=== PATIENT | male | born 1995 | race Caucasian/White ===

== ENCOUNTER 2017-01-10 18:22 | Inpatient (IN) | payer SELFPAY ==
[~2017-01-10] VITALS: Ht 180.3 cm; Wt 69.6 kg
[~2017-01-10 18:22] MED LIST: SULF1TAB47 PO; Z.0.NO CURRENT MEDS
[2017-01-10 18:34] VITALS: BP 129/79; PULSE 114; RESP 20; TEMP 100.7; O2SAT 97
[2017-01-10] MEDS ORDERED: SODIUM CHLOR 0.9% 1000 ML INJ 1,000 ML IV ONE ×2 (19:15→21:00)
[2017-01-10] MEDS ORDERED: KETOROLAC TROMETHAMINE 30 MG/ML (IVP) VIAL IV PUSH ONE (19:15)
[2017-01-10 19:55] LABS: AUTOMATED NEUTROPHIL # 9.6 TH/MM3 (1.8-7.7); BASOPHIL # 0.6 TH/MM3 (0-0.2); BASOPHIL % 4.8 % (0.0-2.0); EOSINOPHIL # 0.1 TH/MM3 (0-0.4); EOSINOPHIL % 0.4 % (0.0-4.0); HEMATOCRIT 47.2 % (39.0-51.0); HEMO FLAGS DIFF FINAL; LYMPH % 10.1 % (9.0-44.0); LYMPHOCYTE # 1.3 TH/MM3 (1.0-4.8); MEAN CELL VOLUME 89.5 FL (80.0-100.0); MEAN CORPUSCULAR HEMOGLOBIN 29.2 PG (27.0-34.0); MEAN CORPUSCULAR HGB CONC 32.6 % (32.0-36.0); MONO % 12.1 % (0.0-8.0); NEUT % 72.6 % (16.0-70.0); PLATELET COUNT 217 TH/MM3 (150-450); RED BLOOD COUNT 5.27 MIL/MM3 (4.50-5.90); RED CELL DISTRIBUTION WIDTH 13.5 % (11.6-17.2); WHITE BLOOD COUNT 13.2 TH/MM3 (4.0-11.0)
--- NOTE | 2017-01-10 20:00 | PD ---
HPI Chief Complaint: Musculoskeletal Complaint Time Seen by Provider: 19:15 Travel History International Travel<30 days: No Contact w/Intl Traveler<30days: No Traveled to known affect area: No History of Present Illness HPI 21-year-old male presents to the emergency department by private transportation the care of family for evaluation of distal left knee and pretibial pain redness swelling and ascending erythema associated with fever without chills. Patient states 2 weeks ago patient sustained an abrasion to the left lower leg has a proximal anterior arboleda. Patient states site has been doing well has had issues has had an abrasion site healing there and then last evening contuse this site again and then overnight started noticing some increased redness and swelling at the location of the abrasion. Patient denies any knee joint pain but does note tenseness at the site and inflammation and swelling when he tries to bend the knee off of the knee itself does not have pain. Patient is also noted some ascending erythema to the medial aspect and proximal to the knee. Patient denies any left groin pain. Patient's had no nausea or vomiting or abdominal pain. Patient has noted fever of 10 1F at home. Patient has had no chills. Patient is not diabetic. Patient does not know his tetanus status. Patient estimates pain as 8/10 in intensity. [facility] Past Medical History Narrative Medical Asthma, depression, Asthma: Yes Depression: Yes Developmental Delay: No Diminished Hearing: No Immunizations Current: Yes Past Surgical History Tonsillectomy: Yes Social History Alcohol Use: Yes (DAILY) Tobacco Use: Yes Substance Use: No Allergies-Medications (Allergen,Severity, Reaction): Coded Allergies: penicillin G (Unverified Allergy, Severe, rash, 01/10/17) Reported Meds & Prescriptions Reported Meds & Active Scripts Active No Active Prescriptions or Reported Medications Review of Systems Except as stated in HPI: all other systems reviewed are Neg General / Constitutional: Positive: Fever, No: Chills HENT: No: Congestion Cardiovascular: No: Chest Pain or Discomfort Respiratory: No: Shortness of Breath Gastrointestinal: No: Nausea, Vomiting, Abdominal Pain Genitourinary: No: Decreased Urinary Output Musculoskeletal: Positive: Limited ROM (left knee), Pain (anterior proximal lower leg ), No: Myalgias, Arthralgias Skin: Positive Rash (anterior proximal lower leg) Neurologic: No: Weakness, Dizziness Psychiatric: No: Anxiety Endocrine: No: Heat Intolerance Hematologic/Lymphatic: No: Easy Bruising Physical Exam Narrative GENERAL: Well-developed well-nourished male in no acute distress no respiratory distress; T: 100.7 F, HR: 114, RR: 20, BP: 129/79 ; O2 sat: 97% SKIN: Warm and dry. HEAD: Normocephalic. EYES: No scleral icterus. No injection or drainage. NECK: Supple, trachea midline. No JVD or lymphadenopathy. CARDIOVASCULAR: Regular rate and rhythm without murmurs, gallops, or rubs. RESPIRATORY: Breath sounds equal bilaterally. No accessory muscle use. GASTROINTESTINAL: Abdomen soft, non-tender, nondistended. MUSCULOSKELETAL: No cyanosis, or edema. Attention left lower extremity just distal to the left knee is an area of erythema induration with central soft small hematoma that readily expresses seropurulent drainage. Patient demonstrates intact range of motion of the knee without joint pain on range of motion although does complain of some noted increased pressure or tenseness at end range of motion overlying the area of soft tissue swelling just anterior to the tibial tuberosity with associated warmth , erythema but without induration. No ballotable joint effusion. Patient has non-antalgic movement of the knee at the joint. Distally extremity is neurovascular tendon intact. Proximally there is ascending erythema medial thigh without groin lymphadenopathy or tenderness to palpation. BACK: Nontender without obvious deformity. No CVA tenderness. Data Data Last Documented VS Vital Signs Date Time Temp Pulse Resp B/P (MAP) Pulse Ox O2 Delivery O2 Flow Rate FiO2 01/10/17 20:34 99.0 102 16 01/10/17 20:08 98 Room Air 01/10/17 18:34 129/79 (96) Orders Orders Basic Metabolic Panel (Bmp) (01/10/17 19:15) Complete Blood Count With Diff (01/10/17 19:15) Blood Culture (01/10/17 19:15) Wound Culture And Gram Stain (01/10/17 19:15) Iv Access Insert/Monitor (01/10/17 19:15) Lactic Acid Sepsis Protocol (01/10/17 19:15) Sodium Chlor 0.9% 1000 Ml Inj (Ns 1000 M (01/10/17 19:15) Knee, Complete (4vws) (01/10/17 ) Ketorolac Inj (Toradol Inj) (01/10/17 19:15) Aztreonam Inj (Azactam Inj) (01/10/17 21:00) Clindamycin Inj (Cleocin Inj) (01/10/17 21:00) Sodium Chlor 0.9% 1000 Ml Inj (Ns 1000 M (01/10/17 21:00) Acetaminophen (Tylenol) (01/10/17 21:00) Admit Order (Ed Use Only) (01/10/17 ) ^ Saline Lock (01/10/17 21:03) Resp Oxygen Lowell C Titrat 1-4 L (01/10/17 ) Notify Dr: Other (01/10/17 21:03) Sodium Chloride 0.9% Flush (Ns Flush) (01/11/17 09:00) Sodium Chloride 0.9% Flush (Ns Flush) (01/10/17 21:15) Labs Laboratory Tests Test 01/10/17 19:35 White Blood Count 13.2 TH/MM3 Red Blood Count 5.27 MIL/MM3 Hemoglobin 15.4 GM/DL Hematocrit 47.2 % Mean Corpuscular Volume 89.5 FL Mean Corpuscular Hemoglobin 29.2 PG Mean Corpuscular Hemoglobin Concent 32.6 % Red Cell Distribution Width 13.5 % Platelet Count 217 TH/MM3 Mean Platelet Volume 8.0 FL Neutrophils (%) (Auto) 72.6 % Lymphocytes (%) (Auto) 10.1 % Monocytes (%) (Auto) 12.1 % Eosinophils (%) (Auto) 0.4 % Basophils (%) (Auto) 4.8 % Neutrophils # (Auto) 9.6 TH/MM3 Lymphocytes # (Auto) 1.3 TH/MM3 Monocytes # (Auto) 1.6 TH/MM3 Eosinophils # (Auto) 0.1 TH/MM3 Basophils # (Auto) 0.6 TH/MM3 CBC Comment DIFF FINAL Differential Comment Blood Urea Nitrogen 11 MG/DL Creatinine 0.97 MG/DL Random Glucose 75 MG/DL Calcium Level 9.3 MG/DL Sodium Level 139 MEQ/L Potassium Level 3.6 MEQ/L Chloride Level 101 MEQ/L Carbon Dioxide Level 31.2 MEQ/L Anion Gap 7 MEQ/L Estimat Glomerular Filtration Rate 97 ML/MIN Lactic Acid Level 2.0 mmol/L MDM Medical Decision Making Medical Screen Exam Complete: Yes Emergency Medical Condition: Yes Medical Record Reviewed: Yes Interpretation(s) Lactic acid: 2.0 Last Impressions Knee X-Ray 01/10/17 0000 Signed Impressions: Service Date/Time: Tuesday, January 10, 2017 19:46 - CONCLUSION: Mild soft tissue swelling no acute fracture or malalignment. Lebron Solano MD CBC & BMP Diagram 01/10/17 19:35 Calcium Level 9.3 Vital Signs Date Time Temp Pulse Resp B/P (MAP) Pulse Ox O2 Delivery O2 Flow Rate FiO2 01/10/17 20:34 99.0 102 16 01/10/17 20:08 105 98 Room Air 01/10/17 18:34 100.7 114 20 129/79 (96) 97 Differential Diagnosis cellulitis, superficial abscess, also to consider septic arthritis no findings for necrotizing fasciitis Narrative Course IV access obtained specimens collected and sent for resulting noted palpable joint effusion no ballotable joint effusion no joint pain at the joint line or with direct palpation on range of motion however patient does report tenseness to proximal tibia/tibial tuberosity overlying soft tissue redness swelling area. IV antibiotics administered. Patient meets SIRS criteria and the most likely sepsis criteria. WCC/HR/TEMP/Cellulitis--sepsis will admit for IV antibiotics Sepsis Criteria SIRS Criteria (2 or more): Temp > 100.9 or < 96.8 (@ home 101F), Heart rate over 90, WBC > 28254, < 4000 or > 10% bands Sepsis Criteria (SIRS+source): Infect source susp/known (proximal lower leg cellulitis superficial abscess w/ ascending lymphangitis) Physician Communication Physician Communication call placed to [facility] service --discussed with DR James for admission Diagnosis Primary Impression: Cellulitis and abscess of left leg Additional Impressions: Ascending lymphangitis Sepsis affecting skin Admitting Information Admitting Physician Requests: Admit Scripts No Active Prescriptions or Reported Meds Misty Lee MD Jan 10, 2017 19:59
--- NOTE | 2017-01-10 20:06 | RADRPT ---
EXAM DATE/TIME: 01/10/2017 19:46 [facility] COMPARISON: No previous studies available for comparison. INDICATIONS : Left knee pain. Fell 2 weeks ago, bumped it last night, and now appears infected on anterior part of knee. MEDICAL HISTORY : None. SURGICAL HISTORY : None. ENCOUNTER: Initial ACUITY: 2 weeks PAIN SCORE: 5/10 LOCATION: Left anterior knee FINDINGS: Four view examination of the left knee demonstrates no evidence of fracture or dislocation. Bony min eralization is normal. The articular surfaces are intact. The suprapatellar soft tissues have a nor mal configuration. There is mild soft tissue swelling along the medial knee. CONCLUSION: Mild soft tissue swelling no acute fracture or malalignment. Lebron Solano MD on January 10, 2017 at 20:04 Board Certified Radiologist. This report was verified electronically.
[2017-01-10 20:08] VITALS: PULSE 105; O2SAT 98
[2017-01-10 20:13] LABS: POTASSIUM 3.6 MEQ/L (3.5-5.1)
[2017-01-10 20:17] LABS: BICARBONATE 31.2 MEQ/L (21.0-32.0)
[2017-01-10 20:34] VITALS: PULSE 102; RESP 16; TEMP 99
[2017-01-10] MEDS ORDERED: CLINDAMYCIN INJ 600 MG in SODIUM CHLORIDE 0.9% INJ 100 ML IV ONE (21:00)
[2017-01-10] MEDS ORDERED: AZTREONAM INJ 2,000 MG in SODIUM CHLORIDE 0.9% INJ 100 ML IV ONE (21:00)
[2017-01-10] MEDS ORDERED: ACETAMINOPHEN 325 MG TAB PO ONE (21:00)
[2017-01-10] MEDS ORDERED: ONDANSETRON HCL 4 MG/2 ML VIAL IVP PRN (21:15)
[2017-01-10] MEDS ORDERED: BISACODYL 10 MG SUPP RECTAL PRN (21:15)
[2017-01-10] MEDS ORDERED: MORPHINE SULFATE 4 MG/ML INJ IV PUSH PRN (21:15)
[2017-01-10] MEDS ORDERED: ACETAMINOPHEN/HYDROcodone 325 MG/5 MG TAB PO PRN (21:15)
[2017-01-10] MEDS ORDERED: SODIUM CHLORIDE 0.9% FLUSH 10 ML FLUSH IV FLUSH PRN (21:15)
[2017-01-10] MEDS ORDERED: SENNOSIDES 8.6 MG TAB PO PRN (21:15)
[2017-01-10] MEDS ORDERED: LACTULOSE SYRUP 20 GM/30 ML CUP PO PRN (21:15)
[2017-01-10] MEDS ORDERED: MAGNESIUM HYDROXIDE SUSP 30 ML CUP PO PRN (21:15)
[2017-01-10] MEDS ORDERED: SODIUM CHLORIDE 0.9% FLUSH 10 ML FLUSH IVF PRN (21:15)
[2017-01-10] MEDS ORDERED: ACETAMINOPHEN 325 MG TAB PO PRN (21:15)
[2017-01-10] MEDS: SODIUM CHLOR 0.9% 1000 ML INJ 1,000 ML IV SCH (22:39)
[2017-01-10 22:43] VITALS: PULSE 95
[2017-01-11 00:34] VITALS: BP 136/84; PULSE 90; RESP 20; TEMP 98.7; O2SAT 100
[2017-01-11 04:53] VITALS: BP 133/86; PULSE 83; RESP 20; TEMP 97; O2SAT 99
[2017-01-11] MEDS ORDERED: CLINDAMYCIN INJ 900 MG in SODIUM CHLORIDE 0.9% INJ 100 ML IV SCH (05:00)
[2017-01-11] MEDS ORDERED: AZTREONAM INJ 1,000 MG in SODIUM CHLORIDE 0.9% INJ 100 ML IV SCH (05:00)
[2017-01-11 07:16] LABS: AUTOMATED NEUTROPHIL # 6.3 TH/MM3 (1.8-7.7); BASOPHIL % 0.3 % (0.0-2.0); EOSINOPHIL # 0.1 TH/MM3 (0-0.4); EOSINOPHIL % 1.1 % (0.0-4.0); HEMATOCRIT 42.1 % (39.0-51.0); HEMO FLAGS DIFF FINAL; LYMPH % 18.4 % (9.0-44.0); LYMPHOCYTE # 1.7 TH/MM3 (1.0-4.8); MEAN CELL VOLUME 88.4 FL (80.0-100.0); MONO % 11.1 % (0.0-8.0); NEUT % 69.1 % (16.0-70.0); PLATELET COUNT 182 TH/MM3 (150-450); RED BLOOD COUNT 4.76 MIL/MM3 (4.50-5.90); RED CELL DISTRIBUTION WIDTH 13.1 % (11.6-17.2); WHITE BLOOD COUNT 9.1 TH/MM3 (4.0-11.0)
[2017-01-11 07:24] LABS: CHLORIDE 105 MEQ/L (98-107); POTASSIUM 3.8 MEQ/L (3.5-5.1); SODIUM (NA) 140 MEQ/L (136-145)
[2017-01-11 07:42] LABS: ALKALINE PHOSPHATASE 49 U/L (45-117); ALT (GPT) 14 U/L (12-78); ANION GAP 6 MEQ/L (5-15); AST (GOT) 10 U/L (15-37); BICARBONATE 28.9 MEQ/L (21.0-32.0); BLOOD UREA NITROGEN 8 MG/DL (7-18); GLOMERULAR FILTRATION RATE 156 ML/MIN (>89); TOTAL BILIRUBIN ADULT 1.2 MG/DL (0.2-1.0)
[2017-01-11 08:00] VITALS: BP 110/77; PULSE 82; RESP 18; TEMP 97.4; O2SAT 100; O2SAT 96
[2017-01-11] MEDS: SODIUM CHLORIDE 0.9% FLUSH 10 ML FLUSH IV FLUSH SCH ×2 (09:00→19:44)
[2017-01-11] MEDS ORDERED: SODIUM CHLORIDE 0.9% FLUSH 10 ML FLUSH IV FLUSH SCH (09:00)
[2017-01-11] MEDS: DOCUSATE SODIUM 50 MG/SENNA 8.6 MG TAB PO SCH ×2 (09:09→21:00)
[2017-01-11] MEDS: SODIUM CHLOR 0.9% 1000 ML INJ 1,000 ML IV SCH (09:10)
[2017-01-11 12:00] VITALS: BP 117/76; PULSE 87; RESP 18; TEMP 99.7; O2SAT 100
[2017-01-11] MEDS ORDERED: VANCOMYCIN INJ 1,250 MG in SODIUM CHLOR 0.9% 250 ML INJ 250 ML IV ONE (12:00)
--- NOTE | 2017-01-11 13:56 | HHI.HP ---
[facility] Service [facility] Primary Care Physician No Primary Care Physician Admission Diagnosis Left pretibial cellulitis ascendning lymphangitis Diagnoses: Travel History International Travel<30 Days: No Contact w/Intl Traveler <30 Da: No Traveled to Known Affected Are: No History of Present Illness This is a pleasant 21-year-old male with no past medical history who presents to the ER for left lower extremity pain and erythema. The patient states that 2 weeks ago he fell and scraped his knee on the asphalt. It had been healing well until 2 days ago when he accidentally bumped it and it re-bled. Later in the day patient noticed that he had knee pain and was walking with a limp and after that he started to develop erythema down the leg. He denied fevers or chills however the emergency department he had temperature 100.7. The patient had a mild leukocytosis on admission as well. He was given clindamycin and Azactam. This morning he states he feels much better and the redness has receded. He is ambulating and has no limp. 10 point review systems otherwise negative. Past Family Social History Past Medical History None Allergies: Coded Allergies: penicillin G (Unverified Allergy, Severe, rash, 01/10/17) Family History Father had CHF Social History He does drink alcohol, denies history of alcohol withdrawal. No illicits or tobacco use. Physical Exam Vital Signs Vital Signs Date Time Temp Pulse Resp B/P (MAP) Pulse Ox O2 Delivery O2 Flow Rate FiO2 01/11/17 08:00 97.4 82 18 110/77 (88) 100 01/11/17 08:00 96 21 01/11/17 04:53 97.0 83 20 133/86 (102) 99 01/11/17 00:34 98.7 90 20 136/84 (101) 100 01/11/17 00:34 100 21 01/10/17 22:43 95 01/10/17 20:34 99.0 102 16 01/10/17 20:08 105 98 Room Air 01/10/17 18:34 100.7 114 20 129/79 (96) 97 Physical Exam GENERAL: Well-nourished, well-developed patient. SKIN: Warm and dry. HEAD: Normocephalic. EYES: No scleral icterus. No injection or drainage. NECK: Supple, trachea midline. No JVD or lymphadenopathy. CARDIOVASCULAR: Regular rate and rhythm without murmurs, gallops, or rubs. RESPIRATORY: Breath sounds equal bilaterally. No accessory muscle use. GASTROINTESTINAL: Abdomen soft, non-tender, nondistended. EXTREMITIES: No cyanosis, or edema. Left lower extremity has a 2 cm wound with overlying eschar just beneath the knee with minimal surrounding erythema, no induration or abscess, the area of erythema has greatly receded from the pen markings. NEUROLOGICAL: Awake, alert, and oriented x 3. Non-focal. Laboratory Laboratory Tests Test 01/10/17 19:35 01/11/17 06:35 White Blood Count 13.2 9.1 Red Blood Count 5.27 4.76 Hemoglobin 15.4 14.3 Hematocrit 47.2 42.1 Mean Corpuscular Volume 89.5 88.4 Mean Corpuscular Hemoglobin 29.2 30.0 Mean Corpuscular Hemoglobin Concent 32.6 34.0 Red Cell Distribution Width 13.5 13.1 Platelet Count 217 182 Mean Platelet Volume 8.0 8.1 Neutrophils (%) (Auto) 72.6 69.1 Lymphocytes (%) (Auto) 10.1 18.4 Monocytes (%) (Auto) 12.1 11.1 Eosinophils (%) (Auto) 0.4 1.1 Basophils (%) (Auto) 4.8 0.3 Neutrophils # (Auto) 9.6 6.3 Lymphocytes # (Auto) 1.3 1.7 Monocytes # (Auto) 1.6 1.0 Eosinophils # (Auto) 0.1 0.1 Basophils # (Auto) 0.6 0.0 CBC Comment DIFF FINAL DIFF FINAL Differential Comment Blood Urea Nitrogen 11 8 Creatinine 0.97 0.64 Random Glucose 75 91 Calcium Level 9.3 8.3 Sodium Level 139 140 Potassium Level 3.6 3.8 Chloride Level 101 105 Carbon Dioxide Level 31.2 28.9 Anion Gap 7 6 Estimat Glomerular Filtration Rate 97 156 Lactic Acid Level 2.0 Total Protein 6.1 Albumin 3.1 Alkaline Phosphatase 49 Aspartate Amino Transf (AST/SGOT) 10 Alanine Aminotransferase (ALT/SGPT) 14 Total Bilirubin 1.2 Date/Time Source Procedure Growth Status 01/10/17 19:40 Blood Peripheral Aerobic Blood Culture - Preliminary NO GROWTH IN 1 DAY Resulted 01/10/17 19:40 Blood Peripheral Anaerobic Blood Culture - Preliminary NO GROWTH IN 1 DAY Resulted 01/10/17 19:40 Wound Knee Gram Stain - Final Resulted 01/10/17 19:40 Wound Knee Wound Culture Pending Resulted Result Diagram: 01/11/17 0635 01/11/17 0635 Caprini VTE Risk Assessment Caprini VTE Risk Assessment: No/Low Risk (score <= 1) Caprini Risk Assessment Model Point Value = 1 Point Value = 2 Point Value = 3 Point Value = 5 Age 41-60 Minor surgery BMI > 25 kg/m2 Swollen legs Varicose veins or History of unexplained or recurrent spontaneous Oral contraceptives or hormone replacement Sepsis (< 1 month) Serious lung disease, including pneumonia (< 1 month) Abnormal pulmonary function Acute myocardial infarction Congestive heart failure (< 1 month) History of inflammatory bowel disease Medical patient at bed rest Age 61-74 Arthroscopic surgery Major open surgery (> 45 min) Laparoscopic surgery (> 45 min) Malignancy Confined to bed (> 72 hours) Immobilizing plaster cast Central venous access Age >= 75 History of VTE Family history of VTE Factor V Leiden Prothrombin [id number] Lupus anticoagulant Anticardiolipin antibodies Elevated serum homocysteine Heparin-induced thrombocytopenia Other congenital or acquired thrombophilia Stroke (< 1 month) Elective arthroplasty Hip, pelvis, or leg fracture Acute spinal cord injury (< 1 month) Prophylaxis Regimen Total Risk Factor Score Risk Level Prophylaxis Regimen 0-1 Low Early ambulation 2 Moderate Order ONE of the following: *Sequential Compression Device (SCD) *Heparin 5000 units SQ BID 3-4 Higher Order ONE of the following medications: *Heparin 5000 units SQ TID *Enoxaparin/Lovenox 40 mg SQ daily (WT < 150 kg, CrCl > 30 mL/min) *Enoxaparin/Lovenox 30 mg SQ daily (WT < 150 kg, CrCl > 10-29 mL/min) *Enoxaparin/Lovenox 30 mg SQ BID (WT < 150 kg, CrCl > 30 mL/min) AND/OR *Sequential Compression Device (SCD) 5 or more Highest Order ONE of the following medications: *Heparin 5000 units SQ TID (Preferred with Epidurals) *Enoxaparin/Lovenox 40 mg SQ daily (WT < 150 kg, CrCl > 30 mL/min) *Enoxaparin/Lovenox 30 mg SQ daily (WT < 150 kg, CrCl > 10-29 mL/min) *Enoxaparin/Lovenox 30 mg SQ BID (WT < 150 kg, CrCl > 30 mL/min) AND *Sequential Compression Device (SCD) Assessment and Plan Problem List: (1) Cellulitis of left knee ICD Code: L03.116 - Cellulitis of left lower limb Assessment and Plan -Left knee/pretibial cellulitis - much improved. He does have a wound there with overlying scab cultures were taken. We'll continue with antibiotics, follow culture. If continued improvement tomorrow will likely be able to discharge home on by mouth antibiotics. DVT prophylaxis with ambulation. Carolyn Burch MD Jan 11, 2017 13:56
[2017-01-11 16:00] VITALS: BP 135/96; PULSE 93; RESP 18; TEMP 99.3; O2SAT 100
[2017-01-11 20:00] VITALS: BP 121/79; PULSE 85; RESP 20; TEMP 99.1; O2SAT 100; O2SAT 99
[2017-01-12] VITALS: BP 129/78; PULSE 89; RESP 20; TEMP 98.9; O2SAT 100
[2017-01-12 08:00] VITALS: BP 118/78; PULSE 87; RESP 16; TEMP 97.8; O2SAT 99
[2017-01-12] MEDS: DOCUSATE SODIUM 50 MG/SENNA 8.6 MG TAB PO SCH (09:00)
[2017-01-12] MEDS: SODIUM CHLORIDE 0.9% FLUSH 10 ML FLUSH IV FLUSH SCH (09:33)
[2017-01-12 09:39] VITALS: O2SAT 98
[2017-01-12 12:00] VITALS: BP 116/83; PULSE 98; RESP 16; TEMP 98.5; O2SAT 98
[2017-01-12] MEDS ORDERED: CLIN1CAP6 PO (12:49)
--- NOTE | 2017-01-12 13:03 | HHI.PR ---
Subjective Remarks Patient states the knee feels much better. Afebrile. He states the wound has been draining small amount of purulent material. Objective Vitals Vital Signs Date Time Temp Pulse Resp B/P (MAP) Pulse Ox O2 Delivery O2 Flow Rate FiO2 01/12/17 09:39 98 21 01/12/17 08:00 97.8 87 16 118/78 (91) 99 01/12/17 00:00 98.9 89 20 129/78 (95) 100 01/11/17 20:00 99.1 85 20 121/79 (93) 100 01/11/17 20:00 99 21 01/11/17 16:00 99.3 93 18 135/96 (109) 100 I/O 01/11/17 01/11/17 01/11/17 01/12/17 01/12/17 01/12/17 07:00 15:00 23:00 07:00 15:00 23:00 Intake Total 712.5 ml 840 ml 120 ml Balance 712.5 ml 840 ml 120 ml Intake Oral 840 ml 120 ml IV Total 712.5 ml # Voids 1 6 1 # Bowel Movements 0 0 Result Diagram: 01/11/17 0635 01/11/17 0635 Objective Remarks GENERAL: Well-nourished, well-developed patient. SKIN: Warm and dry. HEAD: Normocephalic. EYES: No scleral icterus. No injection or drainage. NECK: Supple, trachea midline. No JVD or lymphadenopathy. CARDIOVASCULAR: Regular rate and rhythm without murmurs, gallops, or rubs. RESPIRATORY: Breath sounds equal bilaterally. No accessory muscle use. GASTROINTESTINAL: Abdomen soft, non-tender, nondistended. EXTREMITIES: No cyanosis, or edema. Left knee pretibial area has a small abscess which is draining spontaneously minimal surrounding erythema. NEUROLOGICAL: Awake, alert, and oriented x 3. Non-focal. A/P Problem List: (1) Cellulitis of left knee ICD Code: L03.116 - Cellulitis of left lower limb (2) Cellulitis and abscess of left leg ICD Code: L03.116 - Cellulitis of left lower limb; L02.416 - Cutaneous abscess of left lower limb Status: Acute Assessment and Plan -Left knee/pretibial cellulitis, small abscess - much improved. Cultures positive for MRSA sensitive to clindamycin. Cellulitis is much improved and the abscess is small and draining freely. Discharge home today with clindamycin. Patient instructed to use gauze bandage for the drainage and change daily. He is to return to the ER for worsening erythema or fever. Carolyn Burch MD Jan 12, 2017 13:03
== END 2017-01-12 13:57 | disposition home or self-care (01) | DRG 603 ==
LOC: PHED 18:22 → PHEDA 21:05 → PH3B 22:00
PROVIDERS: ADMIT Family Medicine; ATTEND Family Medicine
DX: L02.416 Cutaneous abscess of left lower limb (principal); F32.9 Major depressive disorder, single episode, unspecified; L03.116 Cellulitis of left lower limb; J45.909 Unspecified asthma, uncomplicated; B95.62 Methicillin resistant Staphylococcus aureus infection as the cause of diseases classified elsewhere
CPT/HCPCS: 73564; 80048; 80053; 83605; 85025; 86403; 87040; 87070; 87147; 87186; 87205; 96361; 96374; J1885; J3370; J7030; J7050